=== PATIENT | female | born 1995 | race African-American/Black ===

== ENCOUNTER 2024-01-09 17:37 | Emergency (ER) | payer OTHER ==
[~2024-01-09] VITALS: Ht 180.3 cm; Wt 137.6 kg
[2024-01-09] MEDS ORDERED: ADVI200T17 PO (18:10)
[2024-01-09] MEDS: methocarbamoL 500 MG TAB PO ONE (20:53)
[2024-01-09] MEDS: ACETAMINOPHEN *IV* 1,000 MG in IV 1 EA IV ONE (20:54)
[2024-01-09 21:12] LABS: BASO % 0.2 % (0.0-1.0); EOS # 0.1 10^3/uL (0.0-0.5); EOS % 1.1 % (0.0-3.0); HEMATOCRIT 40.9 % (36.0-47.0); HEMOGLOBIN 12.8 g/dl (12.0-15.5); LYMPH # 2.8 10^3/uL (1.5-5.0); LYMPH % 34.5 % (24.0-44.0); MEAN CORPUSCULAR HEMOGLOBIN 28.6 pg (27.0-33.0); MEAN CORPUSCULAR HGB CONC 31.3 g/dl (32.0-36.5); MEAN CORPUSCULAR VOLUME 91.3 fl (80.0-96.0); MONO # 0.5 10^3/uL (0.0-0.8); MONO % 5.7 % (2.0-8.0); NEUTROPHILS # 4.8 10^3/uL (1.5-8.5); NEUTROPHILS % 58.1 % (36.0-66.0); PLATELET COUNT, AUTOMATED 361 10^3/uL (150-450); RED BLOOD COUNT 4.48 10^6/uL (4.00-5.40); WHITE BLOOD COUNT 8.2 10^3/uL (4.0-10.0)
[2024-01-09] MEDS ORDERED: PROHANCE 279.3MG/ML 15ML VIAL As Ordered ONE (21:24)
[2024-01-09] MEDS ORDERED: PROHANCE 279.3MG/ML 5ML VIAL As Ordered ONE (21:24)
[2024-01-10] MEDS: KETOROLAC 30 MG/ML 1ML VIAL IV ONE (02:08)
[2024-01-10 08:31] VITALS: BP 136/77; TEMP 97.3; O2SAT 99
== END 2024-01-10 08:37 | disposition short-term general hospital (02) ==
LOC: M ED 17:37
DX: G93.2 Benign intracranial hypertension (principal)
CPT/HCPCS: 70553; 72110; 80047; 85025; 96374; 96375; 99284; A9576; J0131; J1885

== ENCOUNTER → 2024-08-14 | Outpatient (CLI) | payer OTHER ==
[~2024-08-14] MED LIST: ADVI200T17 PO
[2024-08-14 10:30] VITALS: TEMP 97.9
[2024-08-14 12:01] LABS: APPEARANCE, CSF CLEAR (CLEAR); COLOR, CSF COLORLESS (COLORLESS); CSF TUBE# CELL CNT TUBE 1
[2024-08-14 12:35] LABS: CSF TUBE# TP TUBE 3; TOTAL PROTEIN,CSF 20.7 MG/DL (15-45)
[2024-08-14 12:37] LABS: CSF TUBE# GLU TUBE 1
[2024-08-14 13:00] VITALS: BP 105/63; O2SAT 99
== END ==
LOC: M IRPRO 10:21
PROVIDERS: ATTEND Internal Medicine
DX: G93.2 Benign intracranial hypertension (principal)

== ENCOUNTER 2024-10-05 22:15 | Emergency (ER) | payer OTHER ==
[~2024-10-05] VITALS: Ht 180.3 cm; Wt 140.0 kg
[2024-10-06] MEDS: ACETAMINOPHEN 500 MG TAB PO ONE (05:31)
[2024-10-06] MEDS ORDERED: KETOROLAC 60 MG/2 ML VIAL IM ONE (07:05)
[2024-10-06] MEDS: KETOROLAC 30 MG/ML 1 ML VIAL IV ONE (07:23)
[2024-10-06] MEDS: LIDOCAINE 5% PATCH TD ONE (07:24)
[2024-10-06 07:52] LABS: C REACTIVE PROTEIN QUANTITATIV 1.52 MG/DL (<1.0)
[2024-10-06] MEDS ORDERED: OFLO5DRO OU (08:31)
[2024-10-06] MEDS ORDERED: HOME MED LIST COMPLETE! XX SCH (08:35)
[2024-10-06] MEDS ORDERED: ISOVUE-370 76% 100 ML VIAL As Ordered ONE (08:38)
[2024-10-06 12:15] VITALS: BP 122/58; TEMP 97.9; O2SAT 97
== END 2024-10-06 12:53 | disposition left against medical advice (07) ==
LOC: M ED 22:15
DX: M54.50 Low back pain, unspecified (principal); R07.81 Pleurodynia; Z53.9 Procedure and treatment not carried out, unspecified reason; F17.290 Nicotine dependence, other tobacco product, uncomplicated
CPT/HCPCS: 71045; 71275; 72110; 84484; 84702; 85652; 86140; 93005; 93970; 96374; 99284; J1885; Q9967

== ENCOUNTER 2025-03-10 17:30 | Emergency (ER) | payer OTHER ==
[~2025-03-10] VITALS: Ht 170.2 cm; Wt 141.8 kg
[~2025-03-10 17:30] MED LIST changes: +OFLO5DRO OU
[2025-03-10] MEDS ORDERED: CLOT10TR11 PO (19:15)
[2025-03-10 19:22] VITALS: BP 131/75; TEMP 98.1; O2SAT 97
[2025-03-10] MEDS ORDERED: NYST-38 PO (22:42)
== END 2025-03-10 19:25 | disposition home or self-care (01) ==
LOC: M ED 17:30
DX: B37.0 Candidal stomatitis (principal); Z87.891 Personal history of nicotine dependence; Z79.899 Other long term (current) drug therapy